=== PATIENT | male | born 1945 | race Caucasian/White ===

== ENCOUNTER 2017-04-03 16:48 | Emergency (ER) | payer MEDICARE, BC ==
[~2017-04-03] VITALS: Ht 182.9 cm; Wt 87.0 kg
[~2017-04-03 16:48] MED LIST: ALLO100 PO; ALPR2TAB3 PO; ATEN-102 PO; CITA10TA4 PO; COMMODE 3:1; ENOX40P SQ; FLUT1INH PO; FOLI1 PO; LORTA5 PO; OMEP20TA PO; SPIRCAP INH; THIA100T PO; TRAM50 PO; TRAZ100T4 PO; WALKER ROLLING; WHEELCHAIR RENTAL RA; Z.0.COMMODE-3:1; Z.0.WALKERFRONT; ZOCO40TA PO
[2017-04-03 16:55] VITALS: BP 156/83; PULSE 64; RESP 18; TEMP 99.5; O2SAT 92
[2017-04-03] MEDS ORDERED: TIOT12.9 INH (17:07)
[2017-04-03] MEDS ORDERED: OMEP20TA PO (17:07)
[2017-04-03] MEDS ORDERED: MELO-1 PO (17:07)
[2017-04-03] MEDS ORDERED: TRAZ100T6 PO (17:07)
[2017-04-03] MEDS ORDERED: FLUT1INH7 INH (17:07)
[2017-04-03] MEDS ORDERED: CITA40TA4 PO (17:07)
[2017-04-03] MEDS ORDERED: ALPR0.25 PO (17:07)
[2017-04-03] MEDS ORDERED: ATEN50TA PO (17:07)
[2017-04-03 17:10] VITALS: O2SAT 95
--- NOTE | 2017-04-03 17:11 | PD ---
HPI Chief Complaint: Respiratory Symptoms Time Seen by Provider: 16:59 Travel History International Travel<30 days: No Contact w/Intl Traveler<30days: No Traveled to known affect area: No History of Present Illness HPI This 71-year-old male is complaining of shortness of breath. He has a history of COPD and emphysema. He has never been admitted for his COPD but he has had exacerbations requiring steroids in the past. He's been sick for several days with a hacking cough. The cough is nonproductive. He stopped smoking 8 years ago. He is not aware of fever. He does have a history of hypertension. He had a cardiac stent about 20 years ago but has not had any recent cardiac problems. PFSH Past Medical History Arthritis: No Asthma: No Autoimmune Disease: No Anxiety: No Depression: No Heart Rhythm Problems: No Cancer: No Cardiac Catheterization: Yes Cardiovascular Problems: Yes (Angioplasty) High Cholesterol: Yes Chemotherapy: No Chest Pain: No Congestive Heart Failure: No COPD: Yes Cerebrovascular Accident: No Coronary Artery Disease: Yes Diabetes: No Endocrine: No GERD: No Genitourinary: No Hiatal Hernia: No Hypertension: Yes Immune Disorder: No Kidney Stones: No Musculoskeletal: No Neurologic: No Psychiatric: No Reproductive: No Respiratory: Yes Migraines: No Myocardial Infarction: Yes Radiation Therapy: No Renal Failure: No Seizures: No Sickle Cell Disease: No Sleep Apnea: No Thyroid Disease: No Ulcer: No Tetanus Vaccination: > 5 Years Influenza Vaccination: No Past Surgical History Abdominal Surgery: Yes (APPENDECTOMY) AICD: No Appendectomy: Yes Arteriovenous Shunt: No Body Medical Devices: Cardiac stent Cardiac Surgery: Yes (HEART CATH) Ear Surgery: No Endocrine Surgery: No Eye Surgery: No Genitourinary Surgery: No Gynecologic Surgery: No Insulin Pump: No Joint Replacement: No Oral Surgery: Yes (TONSILLECTOMY) Pacemaker: No Thoracic Surgery: No Tonsillectomy: Yes Social History Alcohol Use: Yes (Occ.) Tobacco Use: No Substance Use: No Allergies-Medications (Allergen,Severity, Reaction): Coded Allergies: No Known Allergies (Unverified , 04/03/17) Reported Meds & Prescriptions Reported Meds & Active Scripts Active Reported Breo Ellipta Inh (Fluticasone/Vilanterol) 200-25 Mcg/Act Inh 1 Puff INH DAILY Use daily at the same time. Spiriva Respimat Inh (Tiotropium Inh) 2.5 Mcg/Act Aero 1 Puff INH DAILY 2.5 mcg = 1 inhalation Omeprazole 20 Mg Tab 20 Mg PO DAILY Trazodone (Trazodone HCl) 100 Mg Tablet 100 Mg PO HS Meloxicam 15 Mg Tab 15 Mg PO DAILY PRN Atenolol 50 Mg Tab 50 Mg PO DAILY Citalopram (Citalopram Hydrobromide) 40 Mg Tab 40 Mg PO DAILY Alprazolam 0.25 Mg Tab 0.25 Mg PO BID PRN Review of Systems General / Constitutional: No: Fever, Chills Eyes: No: Diploplia, Blurred Vision HENT: No: Headaches, Vertigo Cardiovascular: No: Chest Pain or Discomfort, Palpitations Respiratory: Positive: Cough, Shortness of Breath, No: Orthopnea Gastrointestinal: No: Nausea, Vomiting Genitourinary: No: Urgency, Frequency Musculoskeletal: No: Myalgias Skin: No Rash Psychiatric: No: Anxiety, Depression Endocrine: No: Heat Intolerance Hematologic/Lymphatic: No: Easy Bruising Physical Exam Narrative GENERAL: Well-developed male. He is in mild respiratory distress SKIN: Focused skin assessment warm/dry. HEAD: Atraumatic. Normocephalic. EYES: Pupils equal and round. No scleral icterus. No injection or drainage. ENT: No nasal bleeding or discharge. Mucous membranes pink and moist. NECK: Trachea midline. No JVD. CARDIOVASCULAR: Regular rate and rhythm. No murmur appreciated. RESPIRATORY: There is accessory muscle use. He has a barrel-shaped chest there are scattered rhonchi diminished breath sounds bilaterally GASTROINTESTINAL: Abdomen soft, non-tender, nondistended. Hepatic and splenic margins not palpable. MUSCULOSKELETAL: No obvious deformities. No clubbing. No cyanosis. No edema. NEUROLOGICAL: Awake and alert. No obvious cranial nerve deficits. Motor grossly within normal limits. Normal speech. PSYCHIATRIC: Appropriate mood and affect; insight and judgment normal. Data Data Last Documented VS Vital Signs Date Time Temp Pulse Resp B/P Pulse Ox O2 Delivery O2 Flow Rate FiO2 04/03/17 17:20 95 Nasal Cannula 2.00 04/03/17 16:55 99.5 64 18 156/83 Orders Complete Blood Count With Diff (04/03/17 17:06) Basic Metabolic Panel (Bmp) (04/03/17 17:06) B-Type Natriuretic Peptide (04/03/17 17:06) Magnesium (Mg) (04/03/17 17:06) Troponin I (04/03/17 17:06) Urinalysis - C+S If Indicated (04/03/17 17:06) Influenzae A/B Antigen (04/03/17 17:06) Iv Access Insert/Monitor (04/03/17 17:06) Electrocardiogram (04/03/17 17:06) Ecg Monitoring (04/03/17 17:06) Oximetry (04/03/17 17:06) Oxygen Administration (04/03/17 17:06) Chest, Single Ap (04/03/17 17:06) Sodium Chloride 0.9% Flush (Ns Flush) (04/03/17 17:15) Methylprednisolone So Succ Inj (Solumedr (04/03/17 17:15) Albuterol-Ipratropium Neb (Duoneb Neb) (04/03/17 17:15) Lactic Acid Sepsis Protocol (04/03/17 17:08) Blood Culture (04/03/17 17:08) Ceftriaxone Inj (Rocephin Inj) (04/03/17 17:30) Labs Laboratory Tests Test 04/03/17 17:15 White Blood Count 6.7 TH/MM3 Red Blood Count 4.94 MIL/MM3 Hemoglobin 16.4 GM/DL Hematocrit 48.6 % Mean Corpuscular Volume 98.5 FL Mean Corpuscular Hemoglobin 33.1 PG Mean Corpuscular Hemoglobin 33.6 % Concent Red Cell Distribution Width 13.0 % Platelet Count 125 TH/MM3 Mean Platelet Volume 8.0 FL Neutrophils (%) (Auto) 64.3 % Lymphocytes (%) (Auto) 20.4 % Monocytes (%) (Auto) 13.2 % Eosinophils (%) (Auto) 1.4 % Basophils (%) (Auto) 0.7 % Neutrophils # (Auto) 4.3 TH/MM3 Lymphocytes # (Auto) 1.4 TH/MM3 Monocytes # (Auto) 0.9 TH/MM3 Eosinophils # (Auto) 0.1 TH/MM3 Basophils # (Auto) 0.0 TH/MM3 CBC Comment DIFF FINAL Differential Comment Sodium Level 139 MEQ/L Potassium Level 3.9 MEQ/L Chloride Level 104 MEQ/L Carbon Dioxide Level 27.2 MEQ/L Anion Gap 8 MEQ/L Blood Urea Nitrogen 14 MG/DL Creatinine 1.00 MG/DL Estimat Glomerular Filtration 74 ML/MIN Rate Random Glucose 103 MG/DL Lactic Acid Level 2.2 mmol/L Calcium Level 8.8 MG/DL Magnesium Level 2.0 MG/DL [facility] Medical Decision Making Medical Screen Exam Complete: Yes Emergency Medical Condition: Yes Medical Record Reviewed: Yes Differential Diagnosis Differential includes COPD exacerbation, pneumonia, CHF Narrative Course Chest x-ray is negative for pneumonia and COPD. He is given 3 nebulizer treatments with some improvement in his air entry. His white count is normal. He is stable for outpatient treatment. He is given Rocephin here. I'll prescribe Zithromax and prednisone Diagnosis Primary Impression: COPD exacerbation Scripts Prednisone 20 Mg Tab20 Mg PO DIRECTED #24 TAB Ref 0 Take 60 MG daily x 4 days, then 40 MG x 4 days, then 20 MG daily x 4 days. Prov:Joce Moreira MD 04/03/17 Azithromycin (Zithromax)250 Mg Oen661 Mg PO DAILY 5 Days Ref 0 Prov:Joce Moreira MD 04/03/17 Disposition: 01 DISCHARGE HOME Condition: Stable Joce Moreira MD Apr 03, 2017 17:11
[2017-04-03] MEDS ORDERED: methylPREDNISolone SOD SUCC 125 MG/2 ML VIAL IVP ONE (17:15)
[2017-04-03] MEDS ORDERED: SODIUM CHLORIDE 0.9% FLUSH 10 ML FLUSH IVF PRN (17:15)
[2017-04-03 17:20] VITALS: O2SAT 95
[2017-04-03] MEDS: RESP: ALBUTEROL 2.5 MG/IPRATROPIUM 0.5 MG NEB (SCH) INH ×2 (17:20→17:21)
--- NOTE | 2017-04-03 17:20 | RADRPT ---
EXAM DATE/TIME: 04/03/2017 17:09 [place] COMPARISON: CHEST PA & LAT, November 29, 2015, 11:57. CHEST SINGLE AP, November 24, 2015, 21:47. INDICATIONS : Cough. MEDICAL HISTORY : Chronic obstructive pulmonary disease. Emphysema. SURGICAL HISTORY : None. ENCOUNTER: Initial ACUITY: 4 - 6 days PAIN SCORE: 3/10 LOCATION: Bilateral chest FINDINGS: Underinflated AP view of the chest demonstrates a normal-sized cardiac silhouette. There is mild atel ectasis at the lung bases. No effusion, consolidation, or pneumothorax is visualized. Bones demonstra te no acute finding. CONCLUSION: No acute cardiopulmonary abnormality is identified. Giovanny Allred MD on April 03, 2017 at 17:18 Board Certified Radiologist. This report was verified electronically.
[2017-04-03] MEDS ORDERED: cefTRIAXone INJ 1,000 MG in SODIUM CHLORIDE 0.9% INJ 100 ML IV ONE (17:30)
[2017-04-03 17:37] LABS: AUTOMATED NEUTROPHIL # 4.3 TH/MM3 (1.8-7.7); BASOPHIL % 0.7 % (0.0-2.0); EOSINOPHIL # 0.1 TH/MM3 (0-0.4); EOSINOPHIL % 1.4 % (0.0-4.0); HEMATOCRIT 48.6 % (39.0-51.0); HEMO FLAGS DIFF FINAL; LYMPH % 20.4 % (9.0-44.0); LYMPHOCYTE # 1.4 TH/MM3 (1.0-4.8); MEAN CELL VOLUME 98.5 FL (80.0-100.0); MEAN CORPUSCULAR HEMOGLOBIN 33.1 PG (27.0-34.0); MEAN CORPUSCULAR HGB CONC 33.6 % (32.0-36.0); MONO % 13.2 % (0.0-8.0); NEUT % 64.3 % (16.0-70.0); PLATELET COUNT 125 TH/MM3 (150-450); RED BLOOD COUNT 4.94 MIL/MM3 (4.50-5.90); WHITE BLOOD COUNT 6.7 TH/MM3 (4.0-11.0)
[2017-04-03 17:47] LABS: CHLORIDE 104 MEQ/L (98-107); POTASSIUM 3.9 MEQ/L (3.5-5.1); SODIUM (NA) 139 MEQ/L (136-145)
[2017-04-03 17:51] LABS: ANION GAP 8 MEQ/L (5-15); BICARBONATE 27.2 MEQ/L (21.0-32.0); BLOOD UREA NITROGEN 14 MG/DL (7-18)
[2017-04-03 17:54] LABS: GLOMERULAR FILTRATION RATE 74 ML/MIN (>89)
[2017-04-03 18:01] VITALS: BP 156/83; PULSE 83; RESP 20; O2SAT 94
[2017-04-03] MEDS ORDERED: ZITH250T PO (18:04)
[2017-04-03] MEDS ORDERED: PRED10PA2 PO (18:04)
[2017-04-03] MEDS ORDERED: PRED20 PO (18:06)
[2017-04-03] MEDS ORDERED: AZITHROMYCIN 250 MG TAB PO ONE (18:15)
[2017-04-03] MEDS ORDERED: IPRASOL INH (18:26)
[2017-04-03] MEDS ORDERED: ACETAMINOPHEN 500 MG CPLT PO ONE (18:45)
[2017-04-03 19:03] VITALS: BP 168/79
[2017-04-03 19:31] LABS: LACTIC ACID GHOST NOT REPORTABLE
--- NOTE | 2017-04-04 05:12 | EKG ---
Date Performed: 04/03/2017 Time Performed: 16:59:14 PTAGE: 71 years EKG: Sinus rhythm NONSPECIFIC T-WAVE ABNORMALITY BORDERLINE ECG INTERPRETATION BASED ON A DEFAULT AGE OF 40 YEARS Comp ared to the PREVIOUS TRACING Nonspecific T wave changes are more marked DOCTOR: Herber Oconnor Interpretating Date/Time 04/04/2017 05:10:59
== END 2017-04-03 19:06 | disposition home or self-care (01) ==
LOC: PHED 16:48
DX: J44.1 Chronic obstructive pulmonary disease with (acute) exacerbation (principal); I10 Essential (primary) hypertension; I25.10 Atherosclerotic heart disease of native coronary artery without angina pectoris; I25.2 Old myocardial infarction; Z79.899 Other long term (current) drug therapy; Z87.891 Personal history of nicotine dependence
CPT/HCPCS: 71010; 80048; 83605; 83735; 83880; 84484; 85025; 87040; 87804; 93005; 94640; 94664; 96365; 96375; 99285; J0696; J2930